=== PATIENT | female | born 1945 | race Caucasian/White ===

== ENCOUNTER 2020-07-03 10:56 | Outpatient (CLI) | payer MEDICARE, MEDICAID, SELFPAY ==
[2020-07-03 11:58] VITALS: BMI 22.6
--- NOTE | 2020-07-03 12:05 | ECG_ITS ---
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 Interpretive Statements NAME OF STUDY: TREADMILL STRESS TEST INDICATION: [Chest Pain] EXERCISE DATA: The patient was exercised by Laz protocol. Baseline heart rate was 67 beats per minute. Baseline blood pressure was 150/77 millimeters of mercury. Target heart rate was 122 beats per minute. Maximum heart rate achieved was 129, which was 105 % of the target heart rate. Maximum blood pressure was 203/98 millimeters of mercury. Total exercise time was 2 minutes and 37 seconds. Maximum METs achieved was 4.6, maximum VO2 was 16.1. The reason for ending the test was completion of protocol. The patient complained of shortness of breath and lef fatigue and asked to terminate test ELECTROCARDIOGRAM: BASELINE: Showed sinus rhythm with PACs, normal axis, no significant ST-T changes at the baseline noted. [] EXERCISE: At the peak exercise level, [] No significant ST-T changes suggestive of ischemia noted. [] RECOVERY: During the recovery period, heart rate dropped appropriately. No significant ST-T changes in the recovery suggestive of ischemia noted. [] CONCLUSION: 1. Exercise capacity poor. 2. Heart rate response was appropriate 3. Blood pressure response was hypertensive 4. Symptoms not suggestive of ischemia. 5. Electrocardiogram was not suggestive of ischemia. Electronically Signed On 07-13-2020 22:54:26 CDT by David Vegas M.D. [email or web address]/store/[id number]
[2020-07-03 12:42] VITALS: BP 177/79; PULSE 77
== END 2020-07-03 10:57 | disposition home or self-care (01) ==
PROVIDERS: Visit Provider Family Medicine
DX: R07.9 Chest pain, unspecified (principal)
CPT/HCPCS: 93017

== ENCOUNTER 2020-09-16 13:19 | Outpatient (CLI) | payer MEDICARE, MEDICAID, SELFPAY ==
--- NOTE | 2020-09-16 13:30 | USCV_ITS ---
Sherine Araujo Age: 75 Gender: F : 1945 Exam Date: 09/16/2020 13:50 Ordering Phys: David Vegas M.D ([email or web address]) Technologist: Sabina Woodruff [place] [facility] [place]: SHORTNESS OF BREATH BP: 157 / 80 HR: 71 Rhythm: Sinus Technical Quality: Adequate MEASUREMENTS (Male / Female) Normal Values 2D ECHO LV Diastolic Diameter PLAX 4.2 cm 4.2 - 5.9 / 3.9 - 5.3 cm LV Systolic Diameter PLAX 2.9 cm IVS Diastolic Thickness 1.5 cm 0.6 - 1.0 / 0.6 - 0.9 cm IVS Systolic Thickness 1.8 cm LVPW Diastolic Thickness 1.5 cm 0.6 - 1.0 / 0.6 - 0.9 cm LVPW Systolic Thickness 1.8 cm RV Chamber Size 2.2 cm LVOT Diameter 2.0 cm LV Ejection Fraction 2D Teich 59.0 % LV Ejection Fraction MOD 2C 51.7 % LV Ejection Fraction 2C AL 53.2 % LA Diameter 3.4 cm LA Width 3.4 cm LA Height 4.0 cm RA Width 3.2 cm RA Height 3.9 cm Aorta at Sinotubular Diameter 2.5 cm M-MODE Aortic Annulus Diameter 2.3 cm LA Ao Ratio MM 1.3 MV E Point Septal Separation 0.4 cm DOPPLER AV Peak Velocity 129.0 cm/s LVOT Peak Velocity 112.0 cm/s AV Area Cont Eq vti 2.5 cm squared AV Area Cont Eq pk 2.7 cm squared MV Area PHT 5.0 cm squared Mitral E to A Ratio 1.4 MV E' Velocity 46.5 cm/s Mitral E to MV E' Ratio 8.2 Mitral E to LV E' Lateral Ratio 8.3 Mitral E to LV E' Septal Ratio 8.0 TR Peak Velocity 263.7 cm/s TR Peak Gradient 27.8 mmHg TV Peak E Velocity 54.0 cm/s Right Atrial Pressure 3.0 mmHg Pulmonary Artery Systolic Pressu 30.8 mmHg PV Peak Velocity 97.0 cm/s RV Acceleration Time 0.1 s RV Ejection Time 0.3 s RV AcT/ET 0.4 FINDINGS Left Ventricle Normal left ventricular size. LV systolic function is normal with EF of 60-65%. No regional wall motion abnormalities. Normal diastolic filling pattern. Right Ventricle The right ventricle is normal in size and function. Right Atrium The right atrium is normal in size. Left Atrium The left atrium is dilated Mitral Valve Structurally normal mitral valve without significant stenosis or prolapse. There is mild mitral regurgitation. Aortic Valve Structurally normal aortic valve without significant sclerosis or stenosis. There is mild aortic regurgitation. Tricuspid Valve Structurally normal tricuspid valve without significant stenosis. Mild tricuspid regurgitation. RVSP is 30-35mmHg Pulmonic Valve Structurally normal pulmonic valve without significant stenosis. There is mild pulmonic regurgitation. Pericardium Normal pericardium without effusion. Aorta Normal ascending aorta dimension. CONCLUSIONS LV systolic function is normal with EF of 60-65% Diastolic function is normal Left atrium is dilated Mild mitral regurgitation, mild aortic regurgitation, mild pulmonic regurgitation and mild tricuspid regurgitation No comparison studies are available David Vegas MD (Electronically Signed) Final Date: 22 September 2020 15:09 S
== END 2020-09-16 13:20 | disposition home or self-care (01) ==
LOC: US 13:21
PROVIDERS: PCP Family Medicine; Visit Provider Internal Medicine
DX: R06.02 Shortness of breath (principal); I08.3 Combined rheumatic disorders of mitral, aortic and tricuspid valves
CPT/HCPCS: 93306

== ENCOUNTER → 2022-02-19 10:32 | Outpatient (BNVA) | payer MEDICARE, MEDICAID, SELFPAY | PROVIDERS: PCP Family Medicine; Visit Provider Internal Medicine | DX: I48.91 Unspecified atrial fibrillation (principal); E78.5 Hyperlipidemia, unspecified; I10 Essential (primary) hypertension; I34.0 Nonrheumatic mitral (valve) insufficiency; R06.00 Dyspnea, unspecified; Z79.01 Long term (current) use of anticoagulants; Z87.891 Personal history of nicotine dependence; R00.2 Palpitations | CPT/HCPCS: 93225; 99214 ==

== ENCOUNTER 2022-03-09 09:45 | Day surgery (SDC) | payer MEDICARE, MEDICAID, SELFPAY ==
[2022-03-08 08:29] VITALS: BMI 22.6
--- NOTE | 2022-03-09 10:03 | USCV_ITS ---
Sherine Araujo Age: 76 Gender: F : 1945 Exam Date: 03/09/2022 11:10 Ordering Phys: David Vegas M.D ([email or web address]) Technologist: Mazin Olvera Exam Location: [facility] [place] Indication: afib BP: / HR: Rhythm: Sinus Technical Quality: , Excellent MEASUREMENTS (Male / Female) Normal Values Medications Complications None Proc. Components After anesthesia team administered sedation,we proceeded with intubation with HAYLIE probe. FINDINGS Left Ventricle Left ventricle is normal in size. LV systolic function is normal Right Ventricle RV is normal in size and function Right Atrium Normal in size Left Atrium Dilated LA Appendage No Left atrial appendage thrombus is seen IA Septum Appears to be normal Mitral Valve Structurally normal mitral valve. Moderate mitral regurgitation Aortic Valve Thickened aortic valve. Tricuspid Valve Mild tricuspid regurgitation. Pulmonic Valve Grossly normal Pericardium Normal Aorta Mild atherosclerotic plaque CONCLUSIONS LV systolic function is normal. No left atrial appendage thrombus is seen. Moderate mitral regurgitation Mild atherosclerotic plaque David Vegas MD (Electronically Signed) Final Date: 13 March 2022 11:01 S
--- NOTE | 2022-03-09 10:06 | ECG_ITS ---
[facility] Test Date: 2022-03-09 Pat Name: Sherine Araujo Department: Room: Gender: Female Assistant At Surgery: : 1945 Requested By: David Vegas Order Number: [id number] Analy MD: Geri Fitch M.D. Measurements Intervals [place] Rate: 111 P: 0 CT: 0 QRS: 75 QRSD: 85 T: 54 QT: 338 QTc: 459 Interpretive Statements ATRIAL FIBRILLATION WITH RAPID VENTRICULAR RESPONSE MINIMAL ST DEPRESSION [0.025+ mV ST DEPRESSION] ABNORMAL RHYTHM ECG No previous ECG available for comparison Electronically Signed On 03-09-2022 16:09:31 DIRECTOR POST by Geri Fitch M.D. [email or web address] w[facility]Betfair[email or web address] hospitalNimbix/store/[id number]
[2022-03-09 10:09] VITALS: BP 162/98; PULSE 108; RESP 18; TEMP 36.5; O2SAT 99
[2022-03-09] MEDS: sodium chloride 0.9% 1,000 ML 30 ML IV (10:30)
--- NOTE | 2022-03-09 10:39 | W.PM.OPSUD ---
Surgery/Procedure H&P Update DATE OF PROCEDURE: March 09, 2022 DATE H&P PERFORMED: 02/19/22 H&P UPDATE INFORMATION: I have reviewed H&P completed within last 30 days, I have examined patient prior to procedure and No changes to prior documentation PREOP DIAGNOSIS: Atrial fibrillation with RVR PRIMARY INDICATION FOR PROCEDURE: Atrial fibrillation with RVR PLANNED PROCEDURE: Operation Date: 03/09/22 11:30 Proposed Procedures p HAYLIE/Cardioversion [id number],I48.91(Not Applicable) - David Vegas M.D s Cardioversion(Not Applicable) - David Vegas M.D Anesthesia team administering anesthesia PHYSICAL EXAM: alert, oriented x 3 and clear to auscultation bilaterally OTHER PERTINENT EXAM FINDINGS: Tachycardic, irregularly irregular
--- NOTE | 2022-03-09 10:54 | ANES.PREANE2 ---
Pre-Anesthetic Assessment Height/Weight: Height 1.68 m Weight 63.503 kg Temp Pulse Resp BP Pulse Ox O2 Del Method 97.7 F 108 H 18 162/98 99 03/09/22 10:09 03/09/22 10:09 03/09/22 10:09 03/09/22 10:09 03/09/22 10:09 03/09/22 10:09 Preop Diagnosis: Atrial fibrillation with RVR Operation Date: 03/09/22 11:30 Proposed Procedures p HAYLIE/Cardioversion [id number],I48.91(Not Applicable) - Karl Dave Cardioversion(Not Applicable) - David Vegas M.D Familial anesthetic complications: n<del>one</del> Was Beta Nate taken within 24 hours: N/A Was Clonidine taken within 24 hours: N/A Last Intake: 16:30 Social No alcohol and No tobacco Exam alert, oriented x 3 and clear to auscultation bilaterally irreg HB Airway Submandibular: within normal limits Cervical ROM: within normal limits Mallampati: Class II Dentition: false (upper and lower) Pulmonary Exertional Dyspnea (for 1 month, since been in afib) and None reported CV/HEM Atrial Fibrillation and Hypertension MVP None reported Hepatic None reported GI Gastroesophageal Reflux Disease (controlled) Metabolic None reported Musc/skel Lower Back Pain and Osteoarthritis/DJD Neuropsych None reported Anesthetic Plan ASA status: 3 Anesthesia: MAC Risk of > 500 ml blood loss (7ml/kg in children): No Medications/Allergies Home Medications Medication Instructions Recorded Confirmed Last Taken Type latanoprost 0.005 % eye drops 1 drp ophthalmic (eye) DAILY 08/18/20 03/08/22 03/08/22 History losartan 50 mg tablet 50 mg PO DAILY 08/18/20 03/08/22 03/08/22 History omeprazole 40 mg capsule,delayed 40 mg PO DAILY 02/18/21 03/08/22 03/08/22 History release apixaban 5 mg tablet (Eliquis) 5 mg PO BID 02/19/22 03/08/22 03/09/22 06:30 History amiodarone 200 mg tablet 200 mg PO DIRECTED #118 tabs 03/05/22 03/08/22 03/09/22 06:00 Rx Allergies Allergy/AdvReac Type Severity Reaction Status Date / Time No Known Allergies Allergy Verified 03/08/22 08:26 Current Medications Generic Name Dose Route Start Last Admin Trade Name Mell PRN Reason Stop Dose Admin Sodium Chloride 1,000 mls @ 30 mls/hr 03/09/22 10:00 03/09/22 10:30 Sodium Chloride 0.9% IV 03/10/22 09:59 30 mls/hr .Q24H DAVIE Administration PFSH Anesthesia Medical History HTN (hypertension) Hyperlipidemia Family History Other CAD (coronary artery disease) Social History Smoking and tobacco status: former smoker Quit status (tobacco): has quit using tobacco Alcohol intake: never Data Anesthesia Cardiac Studies: Echocardiogram 09/16/20 Holter Monitor 02/19/22
--- NOTE | 2022-03-09 11:31 | P.PCN_ITS ---
Procedure Note: Date of procedure: 03/09/22 Pre-procedure diagnosis: Atrial fibrillation with RVR Post-procedure diagnosis: other (Normal sinus rhythm) Procedure: After anesthesia team sedated patient, we proceeded with intubation of HAYLIE pr obe. We confirmed there was no LA appendage thrombus. We then proceeded with DCCV with 200J shock and patient was successfully cardioverted back to normal sinus rhythm with 1 shock. Performing Provider: David Vegas Complications: None Condition: stable Disposition: same day Coding Level of Care Code Acute Code for Edwigeg Beckie
[2022-03-09 11:45] VITALS: BP 123/69; PULSE 66; RESP 16; TEMP 36.4; O2SAT 98
--- NOTE | 2022-03-09 11:50 | ECG_ITS ---
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 Measurements Intervals [place] Rate: 65 P: 81 CA: 175 QRS: 75 QRSD: 94 T: 66 QT: 455 QTc: 476 Interpretive Statements SINUS RHYTHM WITH MARKED SINUS ARRHYTHMIA Compared to ECG 03/09/2022 10:28:06 Atrial fibrillation no longer present ST (T wave) deviation no longer present Electronically Signed On 03-09-2022 16:08:39 REGIONAL MARKETING DIRECTOR by Geri Fitch M.D. [email or web address]/[id number]
[2022-03-09 11:54] VITALS: BP 127/80; PULSE 70; RESP 20; O2SAT 97
--- NOTE | 2022-03-09 14:10 | ANE.PACU2 ---
Inpatient post-anesthesia follow up: Airway intact: Yes Vital signs: Temperature 97.5 F Pulse Rate 70 Respiratory Rate 20 Blood Pressure 127/80 Pulse Oximetry 97 Oxygen Delivery Me thod Room Air Oxygen Flow Rate Fraction of Inspir ed Oxygen Hydration adequate: Yes Nausea and vomiting: No Pain level: 2 Mental status: Baseline
== END 2022-03-09 12:23 | disposition home or self-care (01) ==
PROVIDERS: PCP Family Medicine; Visit Provider Internal Medicine
PROC: (CPT 93312; principal; 2022-03-09 11:30)
PROC: 5A2204Z Restoration of Cardiac Rhythm, Single (ICD-10-PCS; 2022-03-09 11:30)
DX: I48.91 Unspecified atrial fibrillation (principal); I10 Essential (primary) hypertension; K21.9 Gastro-esophageal reflux disease without esophagitis; E78.5 Hyperlipidemia, unspecified; Z87.891 Personal history of nicotine dependence
CPT/HCPCS: 92960; 93005; 93312; 93320; 93325; J2370; J2704; J7030

== ENCOUNTER 2022-03-15 07:00 | Outpatient (CLI) | payer MEDICARE, MEDICAID, SELFPAY ==
--- NOTE | 2022-03-15 07:00 | USCV_ITS ---
Sherine Araujo Age: 76 Gender: F : 1945 Exam Date: 03/15/2022 07:33 Ordering Phys: David Vegas M.D ([email or web address]) Technologist: Mazin Olvera [place] [facility] [place] Indication: palpitations BP: 125 / 75 HR: 62 Rhythm: Sinus Technical Quality: Adequate MEASUREMENTS (Male / Female) Normal Values 2D ECHO LV Diastolic Diameter PLAX 4.6 cm 4.2 - 5.9 / 3.9 - 5.3 cm LV Systolic Diameter PLAX 3.2 cm IVS Diastolic Thickness 0.9 cm 0.6 - 1.0 / 0.6 - 0.9 cm IVS Systolic Thickness 1.3 cm LVPW Diastolic Thickness 1.3 cm 0.6 - 1.0 / 0.6 - 0.9 cm LVPW Systolic Thickness 1.8 cm LVOT Diameter 2.1 cm LV Ejection Fraction 2D Teich 56.9 % LV Ejection Fraction MOD 2C 64.4 % LV Ejection Fraction 2C AL 63.7 % LA Diameter 5.1 cm LA Width 4.4 cm LA Height 4.7 cm RA Width 4.2 cm RA Height 4.4 cm Aorta at Sinotubular Diameter 3.2 cm IVC Diameter 1.8 cm M-MODE Aortic Annulus Diameter 3.3 cm LA Ao Ratio MM 1.5 DOPPLER AV Peak Velocity 98.0 cm/s LVOT Peak Velocity 92.0 cm/s AV Area Cont Eq vti 2.8 cm squared AV Area Cont Eq pk 3.2 cm squared MV Peak Velocity 130.0 cm/s MV Area PHT 4.2 cm squared Mitral E to A Ratio 2.5 MV E' Velocity 50.0 cm/s Mitral E to MV E' Ratio 9.3 Mitral E to LV E' Lateral Ratio 7.5 Mitral E to LV E' Septal Ratio 12.5 TR Peak Velocity 335.8 cm/s TR Peak Gradient 45.1 mmHg TR Mean Velocity 323.1 cm/s TR Mean Gradient 43.0 mmHg TR Velocity Time Integral 127.9 cm TV Peak E Velocity 117.0 cm/s Right Atrial Pressure 3.0 mmHg Pulmonary Artery Systolic Pressu 48.1 mmHg RV Acceleration Time 0.1 s FINDINGS Left Ventricle Left ventricle is normal in size. LV systolic function is normal with EF of 55 to 60%. No regional wall motion abnormalities are seen. Grade 3 diastolic dysfunction. Right Ventricle Normal in size and function Right Atrium Normal in size Left Atrium Dilated Mitral Valve Structurally normal mitral valve. Moderate mitral regurgitation. Aortic Valve Structurally normal aortic valve. No significant aortic stenosis. Mild aortic regurgitation. Tricuspid Valve Mild tricuspid regurgitation. RVSP is 45 to 50 mmHg. This is consistent with moderate pulmonary hypertension. Pulmonic Valve Not well-visualized. Mild pulmonic regurgitation. Pericardium Normal Aorta Normal in size IVC Appears to be normal CONCLUSIONS LV systolic function is normal with EF 55 to 60% Grade 3 diastolic dysfunction Dilated left atrium Moderate mitral regurgitation Mild aortic regurgitation Mild tricuspid regurgitation Moderate pulmonary hypertension Mild pulmonic regurgitation Compared to prior echocardiogram from 2020, patient now has moderate mitral regurgitation. David Vegas MD (Electronically Signed) Final Date: 23 March 2022 17:14 S
== END 2022-03-15 07:01 | disposition home or self-care (01) ==
LOC: RAD 07:03
PROVIDERS: PCP Family Medicine; Visit Provider Internal Medicine
DX: R00.2 Palpitations (principal); I08.3 Combined rheumatic disorders of mitral, aortic and tricuspid valves; I27.20 Pulmonary hypertension, unspecified
CPT/HCPCS: 93306

== ENCOUNTER → 2022-03-23 08:06 | Outpatient (BNVA) | payer MEDICARE, MEDICAID, SELFPAY | PROVIDERS: PCP Family Medicine; Visit Provider Nurse Practitioner Family | DX: I48.91 Unspecified atrial fibrillation (principal); R53.1 Weakness; R53.83 Other fatigue; Z87.891 Personal history of nicotine dependence | CPT/HCPCS: 93005; 99214 ==

== ENCOUNTER → 2022-05-26 14:05 | Outpatient (BNVA) | payer MEDICARE, MEDICAID, SELFPAY | PROVIDERS: PCP Family Medicine; Visit Provider Internal Medicine | DX: I48.91 Unspecified atrial fibrillation (principal); E78.5 Hyperlipidemia, unspecified; I10 Essential (primary) hypertension; R06.00 Dyspnea, unspecified; I34.0 Nonrheumatic mitral (valve) insufficiency; Z87.891 Personal history of nicotine dependence; Z79.01 Long term (current) use of anticoagulants | CPT/HCPCS: 99214 ==

== ENCOUNTER → 2022-10-19 08:59 | Outpatient (BNVA) | payer MEDICARE, MEDICAID, SELFPAY | PROVIDERS: PCP Family Medicine; Referring Provider Family Medicine; Visit Provider Physician Assistant | DX: M48.062 Spinal stenosis, lumbar region with neurogenic claudication (principal); Z98.1 Arthrodesis status | CPT/HCPCS: 72110; 99203 ==

== ENCOUNTER 2022-11-11 11:16 | Outpatient (CLI) | payer MEDICARE, MEDICAID, SELFPAY ==
--- NOTE | 2022-11-11 11:45 | MR_ITS ---
WS: [id number] MRI LUMBAR SPINE NONCONTRAST HISTORY: lumbar pain COMPARISON: 11/18/2009 TECHNIQUE: Sagittal and axial multisequence imaging is submitted. Prior posterior lumbar fusion at L4-5 with fusion across the L4-5 disc space. These findings are new since 2010 examination. Posterior lumbar alignment is otherwise normal. No fractures or marrow edema. 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 Conus terminates normally at L1. L1-L2: Mild annular disc bulging and ligamentum flavum hypertrophy. No stenosis. L2-L3: Mild annular disc bulging with moderate facet joint arthritis. Mild encroachment upon the suba rticular recesses and proximal foramina. No high-grade stenosis. L3-L4: Mild annular disc bulging with moderate bilateral facet foraminal stenosis. Mild disc encroach ment upon the subarticular recesses and the traversing L4 nerve roots. Mild foraminal narrowing. Slig htly greater disc contact but no displacement on the RIGHT L3 exiting nerve root. L4 -L5: Mild osteophytic ridging. Nerve roots are becoming clumped within the thecal sac. L5-S1: Mild annular disc bulging. Mild bilateral foraminal stenosis. Similar to the prior study. IMPRESSION: 1. Posterior lumbar fusion at L4-5 with fusion across the disc space. 2. Mild annular disc bulging with encroachment upon the L4 traversing nerve roots. Also at L3-4 there is very minimal disc contact on the exiting RIGHT L3 nerve root. These findings are new or progresse d since the prior exam. 3. Mild bilateral foraminal stenosis at L5-S1.
== END 2022-11-11 11:17 | disposition home or self-care (01) ==
PROVIDERS: PCP Family Medicine; Visit Provider Physician Assistant
DX: M51.36 Other intervertebral disc degeneration, lumbar region (principal); M48.07 Spinal stenosis, lumbosacral region; Z98.1 Arthrodesis status
CPT/HCPCS: 72148

== ENCOUNTER → 2022-11-15 13:13 | Outpatient (BNVA) | payer MEDICARE, MEDICAID, SELFPAY | PROVIDERS: PCP Family Medicine; Visit Provider Nurse Practitioner Family | DX: I48.91 Unspecified atrial fibrillation (principal); I11.9 Hypertensive heart disease without heart failure; Z87.891 Personal history of nicotine dependence; E78.5 Hyperlipidemia, unspecified; Z79.01 Long term (current) use of anticoagulants | CPT/HCPCS: 36415; 80048; 83880; 99214 ==

== ENCOUNTER → 2022-11-24 13:28 | Outpatient (BNVA) | payer MEDICARE, MEDICAID, SELFPAY | PROVIDERS: PCP Family Medicine; Visit Provider Physician Assistant | DX: M47.26 Other spondylosis with radiculopathy, lumbar region; Z98.1 Arthrodesis status; M54.50 Low back pain, unspecified | CPT/HCPCS: 72100; 99213 ==

== ENCOUNTER → 2022-11-25 15:23 | Outpatient (BNVA) | payer MEDICARE, MEDICAID, SELFPAY | PROVIDERS: PCP Family Medicine; Visit Provider Internal Medicine | DX: E78.5 Hyperlipidemia, unspecified (principal); I10 Essential (primary) hypertension; R06.00 Dyspnea, unspecified; I34.0 Nonrheumatic mitral (valve) insufficiency; I48.91 Unspecified atrial fibrillation; Z87.891 Personal history of nicotine dependence; Z79.01 Long term (current) use of anticoagulants | CPT/HCPCS: 99214 ==

== ENCOUNTER 2022-12-01 14:59 | Emergency (ER) | payer MEDICARE, MEDICAID, SELFPAY ==
--- NOTE | 2022-12-01 15:03 | XR_ITS ---
WS: [id number] Exam: XR shoulder LT min 2V* [id number] Date/Time of Exam: 12/01/2022 3:03 PM Reason For Exam: injury There is a comminuted nondisplaced fracture of the surgical neck and head of the humerus. No other fr actures are noted. AC joint DJD and osteopenia noted. Normal soft tissues. IMPRESSION: 1. Comminuted nondisplaced fracture of the surgical neck and head of the humerus. Degenerative change s.
--- NOTE | 2022-12-01 15:03 | ED_ITS ---
HPI - Fall General: Chief Complaint: Extremity Injury, Upper Stated Complaint: Fall Time Seen by Provider: 12/01/22 15:00 Source: patient and EMS Mode of arrival: EMS Limitations: no limitations History of Present Illness: patient states she is walk with a 2-year-old and tripped and fell and landed into a wall and then on the ground. States she initially hit her left shoulder and fell onto her left hip states her main pain is in her left shoulder she rates a 7 out of 10 is much worse with movement states she has some minimal pain in the left hip Associated symptoms-after fall: Denies abdominal pain, chest pain, headache(s) or neck pain Review of Systems Const: Denies: fever(s), chills, body aches or change in appetite Eyes: Denies: blurry vision or eye discomfort ENMT: Denies: throat pain or dental pain Card: Denies: chest pain Resp: Denies: dyspnea GI: Denies: abdominal pain, nausea, vomiting or diarrhea Musc: Reports: extremity pain; Denies: neck pain or back pain Skin/Breast: Denies: rash Neuro: Denies: headache(s) PFSH ED PFSH: Medical History Grade III diastolic dysfunction HTN (hypertension) Hyperlipidemia Family History Other CAD (coronary artery disease) Social History Smoking and tobacco/nicotine status: former use of tobacco/nicotine Quit status (tobacco/nicotine): has quit using Alcohol intake: never Substance/Drug Use: never Physical Exam Const: COMMON NORMALS: no acute distress, patient oriented x3 and healthy appearing HENMT: COMMON NORMALS: normocephalic and atraumatic HEAD & SCALP: normocephalic and atraumatic Neck/C-Spine: COMMON NORMALS: supple Chest: COMMONS NORMALS: normal inspection of the chest Resp: COMMON NORMALS: normal respiratory effort, No retractions, No use of accessory muscles and clear to auscultation bilaterally AUSCULTATION: clear to auscultation bilaterally Cardio: COMMON NORMALS: regular rate, regular rhythm and No murmurs present (Cardio) RATE: regular rate RHYTHM: regular rhythm GI: COMMON NORMALS: Normal to inspection, nondistended, normoactive bowel sounds present, Soft to palpation, non-tender and no masses PALPATION: Yes Soft to palpation Extremity: NARRATIVE EXTREMITY EXAM: tenderness to left shoulder pain with any range of motion minimal tenderness to left hip and knee she does have range of motion with minimal pain Neuro: COMMON NORMALS: patient oriented x3, moves all extremities and no focal motor deficits Psych: COMMON NORMALS: mental status grossly normal, Normal thought process present and cooperative THOUGHT PROCESS: Normal thought process present Skin: COMMON NORMALS: no rashes or lesions noted and no wounds GENERAL SKIN EXAM: no rashes or lesions noted MDM - Fall Medical Decision Making Patient presents here with a left surgical neck humerus fracture she is ambulatory here with no pain no signs of hip fracture x-ray of her hip was normal did place her in a sling will get her follow-up with orthopedics we will prescribe her pain meds she is return if worsening she did not hit her head has no neck pain. Medical Records I reviewed the patient's medical records. All radiology interpretation(s) finalized by discharge Discharge Plan Discharge Patient Disposition: Home Clinical Impression: Closed fracture of neck of left humerus Condition: Stable Prescriptions: New ondansetron 4 mg tablet,disintegrating 4 mg PO Q6H PRN (Reason: nausea and vomiting) Qty: 14 0RF oxycodone-acetaminophen [Percocet] 5-325 mg tablet 1 tab PO Q8H PRN (Reason: pain) Qty: 20 0RF No Action latanoprost 0.005 % drops 1 drp ophthalmic (eye) DAILY omeprazole 40 mg capsule,delayed release(DR/EC) 40 mg PO DAILY Eliquis 5 mg tablet 5 mg PO BID metoprolol tartrate 25 mg tablet 12.5 mg PO BID potassium chloride 10 mEq tablet extended release 10 meq PO DAILY Qty: 90 3RF furosemide 20 mg tablet 20 mg PO BID Qty: 180 3RF Discharge Orders: Discharge ED (Routine); Ordered 12/01/22 Ordered By: Shayy Stokes Referrals: Rosalie Martinez MD [Physician] - 1-3 days Michoacano Love [Primary Care Provider] - Discharge Diet: Advance as tolerated Discharge Activity: Resume usual activity Patient Instructions: Arm Fracture in Adults (ED), Opioid Safety Coding Level of Care Code ED Boat Motor Mechanic for Chg Fwd
--- NOTE | 2022-12-01 15:03 | XR_ITS ---
WS: [id number] Exam: XR hip LT 2-3V wo/w pel* [id number] Date/Time of Exam: 12/01/2022 3:03 PM Reason For Exam: injury Comparison 05/18/2022. A LEFT total hip prosthesis is in place in satisfactory position. No sign of loosening or fracture. N o acute pelvic fracture. Hardware noted at the lower lumbar spine . Osteopenia. Normal soft tissues. IMPRESSION: 1. Intact LEFT total hip replacement. No fracture or other complication.
--- NOTE | 2022-12-01 15:04 | XR_ITS ---
WS: [id number] Exam: XR knee LT 3V* [id number] Date/Time of Exam: 12/01/2022 3:04 PM Reason For Exam: fall No fracture or dislocation. Mild degenerative change noted. Osteopenia. Normal soft tissues. IMPRESSION: 1. Mild DJD. No fracture noted.
--- NOTE | 2022-12-01 16:12 | DCPLANNER ---
Message sent to ortho for follow up-FX Humerus
[2022-12-01] MEDS: HYDROcodone-acetaminophen 5-325 mg Tablet 1 TAB PO (16:15)
== END 2022-12-01 16:19 | disposition home or self-care (01) ==
PROVIDERS: Emergency Provider Emergency Medicine; PCP Family Medicine
DX: S42.212A Unspecified displaced fracture of surgical neck of left humerus, initial encounter for closed fracture (principal); Z79.01 Long term (current) use of anticoagulants; I10 Essential (primary) hypertension; E78.5 Hyperlipidemia, unspecified; Z87.891 Personal history of nicotine dependence; W01.198A Fall on same level from slipping, tripping and stumbling with subsequent striking against other object, initial encounter
CPT/HCPCS: 73030; 73502; 73562; 99284

== ENCOUNTER → 2022-12-06 08:25 | Outpatient (BNVA) | payer MEDICARE, MEDICAID, SELFPAY | PROVIDERS: PCP Family Medicine; Visit Provider Specialist | DX: S42.212A Unspecified displaced fracture of surgical neck of left humerus, initial encounter for closed fracture (principal); W19.XXXA Unspecified fall, initial encounter; Z46.89 Encounter for fitting and adjustment of other specified devices; S42.212D Unspecified displaced fracture of surgical neck of left humerus, subsequent encounter for fracture with routine healing; X58.XXXD Exposure to other specified factors, subsequent encounter | CPT/HCPCS: 23600; 24530; 73030; 97760; 99204; L3670 ==

== ENCOUNTER 2022-12-06 11:13 | Outpatient (CLI) | payer MEDICARE, MEDICAID, SELFPAY | END 2022-12-06 11:14 | disposition home or self-care (01) | LOC: SPT 11:32 | PROVIDERS: PCP Family Medicine; Visit Provider Specialist | DX: Z46.89 Encounter for fitting and adjustment of other specified devices (principal); S42.212D Unspecified displaced fracture of surgical neck of left humerus, subsequent encounter for fracture with routine healing; X58.XXXD Exposure to other specified factors, subsequent encounter; S42.212A Unspecified displaced fracture of surgical neck of left humerus, initial encounter for closed fracture; W19.XXXA Unspecified fall, initial encounter | CPT/HCPCS: 23600; 24530; 97760; 99204; L3670 ==

== ENCOUNTER → 2022-12-27 13:49 | Outpatient (BNVA) | payer MEDICARE, MEDICAID, SELFPAY | PROVIDERS: PCP Family Medicine; Visit Provider Specialist | DX: S42.212D Unspecified displaced fracture of surgical neck of left humerus, subsequent encounter for fracture with routine healing; W18.30XD Fall on same level, unspecified, subsequent encounter | CPT/HCPCS: 73030; 99024 ==

== ENCOUNTER → 2023-01-24 07:57 | Outpatient (BNVA) | payer MEDICARE, MEDICAID, SELFPAY | PROVIDERS: PCP Family Medicine; Visit Provider Specialist | DX: S42.212D Unspecified displaced fracture of surgical neck of left humerus, subsequent encounter for fracture with routine healing; X58.XXXD Exposure to other specified factors, subsequent encounter; Z46.89 Encounter for fitting and adjustment of other specified devices; M65.4 Radial styloid tenosynovitis [de Quervain] | CPT/HCPCS: 73030; 73110; 97760; 99213; L3809 ==

== ENCOUNTER 2023-01-24 10:31 | Outpatient (CLI) | payer MEDICARE, MEDICAID, SELFPAY | END 2023-01-24 10:32 | disposition home or self-care (01) | LOC: SPT 10:31 | PROVIDERS: PCP Family Medicine; Visit Provider Specialist | DX: Z46.89 Encounter for fitting and adjustment of other specified devices (principal); M65.4 Radial styloid tenosynovitis [de Quervain] | CPT/HCPCS: 97760; 99213; L3809 ==

== ENCOUNTER → 2023-03-07 08:14 | Outpatient (BNVA) | payer MEDICARE, MEDICAID, SELFPAY | PROVIDERS: PCP Family Medicine; Visit Provider Specialist | DX: S42.212D Unspecified displaced fracture of surgical neck of left humerus, subsequent encounter for fracture with routine healing; X58.XXXD Exposure to other specified factors, subsequent encounter | CPT/HCPCS: 73060; 73110; 99213 ==

== ENCOUNTER 2023-03-08 09:11 | Outpatient (CLI) | payer MEDICARE, MEDICAID, SELFPAY ==
--- NOTE | 2023-03-08 09:14 | USCV_ITS ---
Sherine Araujo Age: 77 Gender: F : 1945 Exam Date: 03/08/2023 09:43 Ordering Phys: David Vegas M.D ([email or web address]) Technologist: GENIE [place] [facility] [place]: chest pain sob BP: 139 / 60 HR: 53 Rhythm: Sinus Technical Quality: Adequate MEASUREMENTS (Male / Female) Normal Values 2D ECHO LV Diastolic Diameter PLAX 2.8 cm 4.2 - 5.9 / 3.9 - 5.3 cm LV Systolic Diameter PLAX 2.0 cm IVS Diastolic Thickness 1.0 cm 0.6 - 1.0 / 0.6 - 0.9 cm IVS Systolic Thickness 0.9 cm LVPW Diastolic Thickness 1.6 cm 0.6 - 1.0 / 0.6 - 0.9 cm LVPW Systolic Thickness 1.4 cm LVOT Diameter 2.1 cm LV Ejection Fraction 2D Teich 59.5 % LV Ejection Fraction MOD 2C 36.1 % LV Ejection Fraction 2C AL 36.5 % LA Diameter 5.1 cm LA Width 3.7 cm LA Height 4.6 cm RA Width 3.2 cm RA Height 3.5 cm Aorta at Sinotubular Diameter 2.2 cm IVC Diameter 1.4 cm M-MODE Aortic Annulus Diameter 2.3 cm LA Ao Ratio MM 2.2 MV E Point Septal Separation 0.3 cm DOPPLER AV Peak Velocity 119.0 cm/s LVOT Peak Velocity 96.0 cm/s AV Area Cont Eq vti 3.0 cm squared AV Area Cont Eq pk 2.7 cm squared MV Area PHT 4.4 cm squared Mitral E to A Ratio 1.3 MV E' Velocity 57.0 cm/s Mitral E to MV E' Ratio 15.5 Mitral E to LV E' Lateral Ratio 17.5 Mitral E to LV E' Septal Ratio 14.1 TR Peak Velocity 267.4 cm/s TR Peak Gradient 28.6 mmHg TR Mean Velocity 195.5 cm/s TR Mean Gradient 17.1 mmHg TR Velocity Time Integral 91.4 cm TV Peak E Velocity 63.0 cm/s Right Atrial Pressure 3.0 mmHg Pulmonary Artery Systolic Pressu 31.6 mmHg FINDINGS Left Ventricle Left ventricle is normal in size. LV systolic function is normal with EF of 55 to 60%. No regional wall motion abnormalities are seen. Right Ventricle Normal in size and function Right Atrium Normal in size Left Atrium Normal in size Mitral Valve Structurally normal mitral valve.Mild mitral regurgitation. Aortic Valve Structurally normal aortic valve. Trace aortic regurgitation. No significant stenosis Tricuspid Valve Mild tricuspid regurgitation. Pulmonary artery systolic pressure is normal. Pulmonic Valve Mild pulmonic regurgitation Pericardium Normal Aorta Normal in size IVC Appears to be normal CONCLUSIONS LV systolic function is normal with EF of 55 to 60% Mild mitral regurgitation Trace aortic regurgitation Mild tricuspid regurgitation Mild pulmonic regurgitation Compared to prior echocardiogram from 2020, no significant changes are seen David Vegas MD (Electronically Signed) Final Date: 11 March 2023 17:46 S
== END 2023-03-08 09:12 | disposition home or self-care (01) ==
LOC: RAD 09:11
PROVIDERS: PCP Family Medicine; Visit Provider Internal Medicine
DX: R07.9 Chest pain, unspecified (principal); R06.02 Shortness of breath
CPT/HCPCS: 93306

== ENCOUNTER → 2023-05-18 09:38 | Outpatient (BNVA) | payer MEDICARE, MEDICAID, SELFPAY | PROVIDERS: PCP Family Medicine; Visit Provider Nurse Practitioner Family | DX: I11.9 Hypertensive heart disease without heart failure (principal); I48.0 Paroxysmal atrial fibrillation; Z87.891 Personal history of nicotine dependence; Z79.01 Long term (current) use of anticoagulants | CPT/HCPCS: 99214 ==

== ENCOUNTER → 2023-09-28 11:52 | Outpatient (BNVA) | payer MEDICARE, MEDICAID, SELFPAY | PROVIDERS: PCP Family Medicine; Visit Provider Internal Medicine | DX: I48.0 Paroxysmal atrial fibrillation (principal) | CPT/HCPCS: 93005; 99214 ==

== ENCOUNTER → 2023-11-23 11:27 | Outpatient (BNVA) | payer MEDICARE, MEDICAID, SELFPAY | PROVIDERS: PCP Family Medicine; Visit Provider Internal Medicine | DX: I11.9 Hypertensive heart disease without heart failure (principal); E78.5 Hyperlipidemia, unspecified; R06.00 Dyspnea, unspecified; I34.0 Nonrheumatic mitral (valve) insufficiency; I48.0 Paroxysmal atrial fibrillation; Z87.891 Personal history of nicotine dependence; Z79.01 Long term (current) use of anticoagulants | CPT/HCPCS: 99214 ==

== ENCOUNTER → 2024-12-27 07:50 | Outpatient (BNVA) | payer MEDICARE, MEDICAID, SELFPAY | PROVIDERS: PCP Family Medicine; Visit Provider Nurse Practitioner Family | DX: L91.8 Other hypertrophic disorders of the skin (principal); L82.1 Other seborrheic keratosis; L57.8 Other skin changes due to chronic exposure to nonionizing radiation; L82.0 Inflamed seborrheic keratosis; Z78.9 Other specified health status; R20.8 Other disturbances of skin sensation; L53.8 Other specified erythematous conditions | CPT/HCPCS: 17110; 99203 ==